=== PATIENT | female | born 1955 | race Caucasian/White ===

== ENCOUNTER → 2020-02-05 | Outpatient (CLI) | payer OTHER, MEDICAID ==
[~2020-02-05] MED LIST: ABILIFY 5 MG TAB5 M1 PO; ABILIFY10 MG PO; AMOXICILLIN 50500 MG PO; ATIVAN0.5 MG PO; AUGMENTIN 875-1 EACH PO; DIAZEPAM 10 MG10 M1 PO; DIAZEPAM 5 MG5 M1 PO; ENDOCET 5-3251 EACH PO; ESTRACE1 MG PO; EUTHYROX137 MCG PO; LEVOTHYROXIN0.025 MG PO; LEVOTHYROXINE 0.15MG PO; LIPITOR 20 MG T20 M1 PO; LISINOPRIL10 MG PO; MECLIZINE HCL12.5 MG PO; METFORMIN HCL500 MG PO; MOBIC15 MG PO; NERVE PILL; NORCO 10-325 T1 EACH PO; OMEPRAZOLE40 MG PO; ONDANSETRON HCL4 M2 PO; PEPCID20 MG PO; PERCOCET 5-3251 EACH PO; PERCOCET PO; PHENERGAN 25 MG25 M1 PO; PROPRANOLOL 20M20 M1 PO; PROZAC40 MG PO; TIZANIDINE HCL2 M1 PO; TRANSDERM-SCO1 PATCH TD; VALIUM5 MG PO; XARELTO15 MG PO; ZANTAC 150MG T150 MG PO; [UNRECOGNIZED DRUG - REMARK]; [UNRECOGNIZED DRUG - REMARK]
--- NOTE | 2020-02-21 15:40 | PAINCON ---
[address] [address] PAIN MANAGEMENT CONSULTATION Name: KATARZYNA SANCHEZ Room: [facility]#: [id number] Admission: 02/05/20 Attend Phys: Jigar Torres MD Discharge: Date of : 53 Report #: [id number] THIS REPORT FOR: //name// cc: Ava Hagan MD, Jayne Lora MD ~ THIS REPORT FOR: //name// CC: Ava Torres DATE OF SERVICE: 02/05/2020 CHIEF COMPLAINT: Back pain. HISTORY OF PRESENT ILLNESS: The patient is a 64-year-old female who has history of back problems. She has pain in her back as well as the left shoulder. She has been having problems since 2012. She has had a problem with lumbar radicular pain. She has undergone treatment at the [facility]. Her physician about a year ago. She has had epidural steroid injection in the past and found them helpful. She has had radiofrequency treatment of her back as well. She rates her pain as an 8/10 today. She has been using oxycodone and finds that that can be helpful. Notes that activities such as lifting, bending, sitting, standing can be problematic. She avoids stairs. Notes that rest and using a reclining chair can be helpful as well. ALLERGIES: Z-NILTON, TETRACYCLINE, MORPHINE. CURRENT MEDICATIONS: Abilify 5 mg, 10 mg total, Lipitor 20 mg, Estrace 1 mg, levothyroxine 137 mcg, Zestril 10 mg, omeprazole 40 mg, Zofran 4 mg, propranolol 20 mg. PAST MEDICAL HISTORY: Back problems, thyroid, hypertension, pulmonary embolus. PAST SURGICAL HISTORY: Radiofrequency treatment to decrease back pain ____, 04/17/2014; thyroidectomy, cholecystectomy, hysterectomy, glass removed from the right hand. SOCIAL HISTORY: The patient is not working, has not worked for the last 18 years, occupation is housewife. REVIEW OF SYSTEMS: Weight change, fatigue, headaches, wears glasses, blurred vision, earaches, chronic sinus problems, sore throat, shortness of breath when lying flat, chronic cough, shortness of breath, loss of appetite, frequent diarrhea, frequent urination, awakens at night to urinate, joint pain, joint stiffness, weakness of muscles and joints, muscle pain and cramps, back pain, difficulty walking, frequent and recurring headaches, lightheadedness, [place] [address] PAIN MANAGEMENT CONSULTATION Name: KATARZYNA SANCHEZ Alex Room: [facility]#: [id number] Admission: 02/05/20 Attend Phys: Jigar Torres MD Discharge: Date of : 53 Report #: [id number] and tingling sensation, depression, and nervousness. PAIN CLINIC ASSESSMENT AND PQRS: 1. The patient is not being treated for rheumatoid arthritis. Does have some arthritic changes and complaints in her left shoulder with a rotator cuff tear. 2. Height 5 feet 10 inches, weight 297 pounds. Blood pressure 160/70, heart rate 71, respiratory rate 20, room air saturation 96%, temperature 98.3. 3. Pain intensity 03/24. 4. Fall history: The patient has not fallen in the last 3 months. 5. Blood thinner. The patient is not on a blood thinning medication. 6. Hypertension. The patient is being treated for hypertension. 7. Opioids greater than 6 weeks. The patient is not on an opioid medication on a regular basis. 8. Risk assessment tool, low for opioid use. 9. Functional assessment tool, reviewed. 10. Recreational drug use. The patient denies. 11. Tobacco: The patient denies. 12. Alcohol: The patient denies frequent use of alcoholic beverages. LABORATORY DATA: X-ray of the lumbar spine, 02/2015. Impression: 1. Circumferential bulge at L3-L4 with mildly impresses on the thecal sac. Bilateral facet arthrosis is noted. Mild bilateral neural foraminal narrowing is seen due to disk bulge and facet arthrosis. A high intensity zone is present within the posterior right subarticular annular fibers of the disk, which may represent an annular fissure/tear that may be associated with pain. 2. Circumferential bulge at L4-L5 with mildly which mildly impresses on the thecal sac. Bilateral facet arthrosis is noted with effusion. Mild bilateral neural foraminal narrowing is seen due to disk bulge and facet arthrosis. 3. Circumferential disk bulge at L5-S1, which mildly impresses on the thecal sac. Bilateral facet arthrosis is noted. Mild bilateral neural foraminal narrowing is seen due to the disk bulge and facet arthrosis. No significant interval changes noted compared to the 02/2015 lumbar spine MRI study. PHYSICAL EXAMINATION: GENERAL: The patient is a well-developed, well-nourished white female. Appears her stated age of 64 years. Has pain and discomfort in the left shoulder as well as the low back area. The patient is wearing glasses. HEENT: Normocephalic, atraumatic. Extraocular eye muscles intact. Sclerae nonicteric. Mucous membranes are moist. NECK: Without adenopathy. The patient has some pain and discomfort in the left shoulder. She has some decreased range of motion secondary to rotator cuff tear. HEART: Regular rate. ABDOMEN: Nontender. LUNGS: Clear. EXTREMITIES: Right upper extremity muscle strength judged to be 5-/5 [place] [address] PAIN MANAGEMENT CONSULTATION Name: KATARZYNA SANCHEZ Alex Room: [facility]#: [id number] Admission: 02/05/20 Attend Phys: Jigar Torres MD Discharge: Date of : 53 Report #: [id number] major muscle groups in the upper extremity. The patient without significant scoliosis, kyphosis or lordosis. The patient has some pain and discomfort in the lumbar area with pain in the mid portion of the back and the left and right paraspinous areas. Notes increased pain and discomfort with prolonged standing. Notes some increased discomfort when she walks. MUSCULOSKELETAL: The patient has some decreased range of motion and pain and discomfort in the left shoulder because of the rotator cuff tear. Has difficulty lifting the left arm. The patient has some pain in the low back area. States that she has had some problems in the lumbar L4-L5 area. The patient complains of some pain in the lower lumbar area and pain in the buttocks area bilaterally. IMPRESSION: 1. Chronic low back pain with history of lumbar radiculopathy. 2. Back problems. 3. Thyroid. 4. Hypertension. 5. Pulmonary embolus. RECOMMENDATIONS: We discussed treatment options with the patient. At this juncture, she feels that the medications of oxycodone have been helpful. She has had good relief with its use. She would like to have this medication renewed. She would also like to consider an epidural steroid injection in the near future. A script for oxycodone 5 mg 1 p.o. b.i.d. have been written. The patient will follow up in the near future when she elects to proceed with an epidural steroid injection. She would like to have her treatment performed at [facility]. This is much closer than the [facility]. We would like to thank you for letting us participate in her care. We hope she continues to improve. <ELECTRONICALLY SIGNED> By: Jigar Torres MD 02/21/20 1540 0025 0628N. Bautista Torres MD /[facility]
== END ==
LOC: M.PC 04:36
PROVIDERS: ATTEND Anesthesiology Pain Medicine
DX: M54.5 Low back pain (principal); I10 Essential (primary) hypertension; I26.99 Other pulmonary embolism without acute cor pulmonale; E07.9 Disorder of thyroid, unspecified; Z88.1 Allergy status to other antibiotic agents; Z90.49 Acquired absence of other specified parts of digestive tract; Z88.8 Allergy status to other drugs, medicaments and biological substances

== ENCOUNTER → 2020-02-19 | Outpatient (CLI) | payer OTHER, MEDICAID ==
--- NOTE | 2020-03-05 08:36 | PAINCON ---
[address] [address] PAIN MANAGEMENT CONSULTATION Name: KATARZYNA SANCHEZ Room: [facility].#: [id number] Admission: 02/19/20 Attend Phys: Jigar Torres MD Discharge: Date of : 53 Report #: [id number] THIS REPORT FOR: //name// cc: Boris Banks Chad W. DO ~ THIS REPORT FOR: //name// CC: Boris Torres DATE OF SERVICE: 02/19/2020 CHIEF COMPLAINT: Back pain. HISTORY: The patient is a 64-year-old female who has been referred to the pain clinic. She has pain and discomfort, which has been problematic since about 2012. She has undergone epidural steroid injections in the past. She has had radiofrequency treatment. She returns today indicating that her pain has increased. The [facility] where she was being treated there is no longer operating the pain clinic. She would like to have her services provided at [facility]. The patient states that she has white coat syndrome and has elevated blood pressures when she is at the hospital, but does have elevated pressures at home. ALLERGIES: Z-NILTON, TETRACYCLINE, MORPHINE. PAIN CLINIC ASSESSMENT/PQRS: 1. The patient is not being treated for rheumatoid arthritis. She does have some arthritic changes and complaints of left shoulder pain with rotator cuff tear. 2. Height 5 feet 8 inches, weight 296 pounds, BMI is 45.3. 3. Vital signs: Blood pressure 203/114. Second blood pressure 194/119. Heart rate 80, respiratory rate 18, room air saturation 97%, temperature 98.3. 4. Fall history: The patient has not fallen in the last 3 months. 5. Blood thinner. The patient is not on a blood thinning medication. 6. Hypertension. The patient is being treated for hypertension and has white coat syndrome. 7. Opioid greater than 6 weeks. The patient is not on an opioid regimen. 8. Risk assessment tool, low for opioid use. 9. Functional assessment tool reviewed. 10. Recreational drug use. The patient denies. 11. Tobacco: The patient denies. 12. Alcohol: The patient denies frequent use of alcoholic beverages. PHYSICAL EXAMINATION: [place] [address] PAIN MANAGEMENT CONSULTATION Name: KATARZYNA SANCHEZ Room: [facility]#: [id number] Admission: 02/19/20 Attend Phys: Jigar Torres MD Discharge: Date of : 53 Report #: [id number] GENERAL: The patient is a well-developed, well-nourished white female. Appears her stated age of 64 years. She is somewhat overweight. She is wearing glasses. She has a mask in place. NECK: Without adenopathy. Some discomfort in her left shoulder with decreased range of motion secondary to rotator cuff tear. HEART: Irregular heart rate. ABDOMEN: Nontender. LUNGS: Clear. EXTREMITIES: Upper extremity muscle strength judged to be 5-/5 for the major muscle groups in the upper extremity. The patient without significant scoliosis, kyphosis or lordosis. The patient has some discomfort in the lumbar area and in the mid portion of her back in the left and right paraspinous areas. The patient notes increased pain with prolonged standing. MUSCULOSKELETAL: The patient with decreased range of motion, some difficulty in left shoulder because of the rotator cuff. The patient has problem pain and discomfort in the L4-L5 dermatomal distribution. The patient complains of pain in the buttocks and the L4-L5 areas. IMPRESSION: 1. Low back pain with history of lumbar radiculopathy. 2. Low back problems. 3. Thyroid problems. 4. Hypertension. RECOMMENDATIONS: We discussed treatment options with the patient. Risks and benefits of an epidural steroid injection were discussed. Possible complications of the procedure, which could include but are not limited to infection, worsening pain, no improvement in pain, nerve damage and bleeding were discussed. The patient elects to proceed. PROCEDURE NOTE: The patient was taken to the procedure area. She was then assisted in getting on the examination table. Her back was sterilely prepped with a Betadine solution at the L4-L5 area. A Betadine solution was used to sterilize the L4-L5 area. Fluoroscopy using anterior, posterior as well as lateral viewing were implemented. The L4 area was then anesthetized with 0.25% bupivacaine using a 25-gauge needle. A 17-gauge Tuohy with loss of resistance technique was then used to gain access to the epidural space. There was no CSF, heme or paresthesia. Total of 80 mg Depo-Medrol, 40 mg triamcinolone and 2 mL of 0.25% bupivacaine was injected. The patient tolerated the procedure well. There were 8 seconds use of fluoroscopy time. The patient will follow up in [place] [address] PAIN MANAGEMENT CONSULTATION Name: KATARZYNA SANCHEZ [facility] [id number] Admission: 02/19/20 Attend Phys: Jigar Torres MD Discharge: Date of : 54 Report #: [id number] We would like to thank you for letting us to participate in her care. We hope she continues to improve. <ELECTRONICALLY SIGNED> By: Jigar Torres MD 03/05/20 0836 0825 1459N. Bautista Torres MD /[facility]
== END | disposition home or self-care (01) ==
LOC: M.PC 04:09
PROVIDERS: ATTEND Anesthesiology Pain Medicine
DX: M54.16 Radiculopathy, lumbar region (principal); G89.29 Other chronic pain; I10 Essential (primary) hypertension; E07.9 Disorder of thyroid, unspecified; Z98.890 Other specified postprocedural states; Z79.899 Other long term (current) drug therapy; Z88.8 Allergy status to other drugs, medicaments and biological substances

== ENCOUNTER → 2020-03-18 | Outpatient (CLI) | payer OTHER, MEDICAID ==
--- NOTE | 2020-04-01 08:25 | PAINCON ---
[address] [address] PAIN MANAGEMENT CONSULTATION Name: KATARZYNA SANCHEZ Room: [facility].#: [id number] Admission: 03/18/20 Attend Phys: Jigar Torres MD Discharge: Date of : 54 Report #: [id number] THIS REPORT FOR: //name// cc: Boris Banks Chad W. DO ~ THIS REPORT FOR: //name// CC: Boris Mansfield DATE OF SERVICE: 03/18/2020 CHIEF COMPLAINT: Low back pain. HISTORY: The patient is a 64-year-old female who has been seen in the Pain Clinic. She has returned today indicating that she is still having pain, which is problematic in the low back area. She feels that she is still having pain and complains of an achy pressure sensation with grinding. Activity continues to exacerbate her discomfort. She rates it as a 4/10. Overall, she feels that her pain is about 60% better with her current use of oxycodone. She has returned today for an epidural steroid injection. As you may recall, she was being treated at [facility]. Services are no longer available in the Pain Clinic at that facility. She is being seen at [facility] for a followup. The patient does suffer from white coat syndrome. States her blood pressure oftentimes becomes quite elevated when she goes to the hospital. ALLERGIES: Z-NILTON, TETRACYCLINE, MORPHINE. PAIN CLINIC ASSESSMENT/PQRS: 1. The patient is not being treated for rheumatoid arthritis. She does have some arthritic changes in her shoulder and complains of rotator cuff pain with a tear. 2. Height 5 feet 8 inches, weight 292 pounds, BMI is 44. 3. Vital signs: Blood pressure 182/96, heart rate 83, respiratory rate 18, room air saturation 95%, and temperature 96.9. 4. Pain intensity, 4/10. 5. Fall history: The patient has not fallen since we saw her last. 6. Blood thinner. The patient is not on a blood thinning medication. 7. Hypertension. The patient is being treated for hypertension. She has a white coat syndrome. 8. Opioids greater than 6 weeks. The patient is not on an opioid regimen. 9. Risk assessment tool, low for opioid use. 10. Functional assessment tool 11. Recreational drug use. The patient denies. 12. Tobacco: [place] [address] PAIN MANAGEMENT CONSULTATION Name: LAURAKATARZYNA Room: [facility]#: [id number] Admission: 03/18/20 Attend Phys: Jigar Torres MD Discharge: Date of : 53 Report #: [id number] 13. Alcohol. The patient denies frequent use of alcoholic beverages. PHYSICAL EXAMINATION: GENERAL: The patient is a well-developed, well-nourished white female. Appears her stated age. She is alert and oriented x 3. She is somewhat obese. She is wearing glasses. She does have a mask in place. NECK: Without adenopathy or JVD. The patient does complain of some pain in her left shoulder with range of motion. This is secondary to rotator cuff tear. HEART: Irregular, heart rate. ABDOMEN: Nontender. LUNGS: Generally clear. EXTREMITIES: Upper extremity muscle strength is 5-/5 for the major muscle groups in the upper extremity. The patient is without significant scoliosis, kyphosis or lordosis. The patient has pain and discomfort in the lumbar area with pain that is radiating down into the L4-L5 dermatomal distribution. The patient has sensory changes. Has pain in the area of the buttocks near the L4-L5 area. IMPRESSION: 1. Lumbar pain with history of lumbar radiculopathy, L4-L5 dermatomal distribution. 2. Lower back pain. 3. Thyroid pain or thyroid problems. 4. Hypertension-white coat syndrome. RECOMMENDATIONS: We discussed treatment options with the patient. Risks and benefits of an epidural steroid injection were discussed. Possible complications of the procedure, which could include but are not limited to infection, worsening pain, no improvement in pain, nerve damage, spinal headache were discussed. We also discussed the problems with steroid use. Steroids can decrease the immune reaction. If the patient should become infected with COVID-19, she may have a more difficult time with virus. She elects to proceed. PROCEDURE NOTE: The patient was taken to the procedure area. She was then assisted in getting on the examination table. Her back was sterilely prepped with a Betadine solution. A 0.25% bupivacaine was infiltrated at the right L4-L5 interspace. This area had been sterilely prepped with Betadine. A 17-gauge Tuohy with loss of resistance technique was then used to gain access to the epidural space. There was no CSF, heme or paresthesia. Total of 80 mg Depo-Medrol, 40 mg triamcinolone and 2 mL of 0.25% bupivacaine was injected. The patient tolerated the procedure well. There were no complications. She remained in the Pain Clinic for an appropriate amount of time. She will follow up in the [place] [address] PAIN MANAGEMENT CONSULTATION Name: KATARZYNA SANCHEZ Alex Room: [facility]#: [id number] Admission: 03/18/20 Attend Phys: Jigar Torres MD Discharge: Date of : 54 Report #: [id number] We would like to thank you for letting us participate in her care. We hope she continues to improve. <ELECTRONICALLY SIGNED> By: Jigar Torres MD 04/01/20 0825 1411 2154N. Bautista Torres MD /nt
== END | disposition home or self-care (01) ==
LOC: M.PC 02:18
PROVIDERS: ATTEND Anesthesiology Pain Medicine
DX: M54.5 Low back pain (principal); M54.16 Radiculopathy, lumbar region; I10 Essential (primary) hypertension; Z88.8 Allergy status to other drugs, medicaments and biological substances; Z79.899 Other long term (current) drug therapy

== ENCOUNTER → 2020-04-15 | Outpatient (CLI) | payer OTHER, MEDICAID ==
[~2020-04-15] MED LIST changes: +[UNRECOGNIZED DRUG - OTHER]
--- NOTE | ~2020-04-15 | PAINCON ---
[address] [address] PAIN MANAGEMENT CONSULTATION Name: KATARZYNA SANCHEZ [id number] Admission: 04/15/20 Attend Phys: Jigar Torres MD Discharge: Date of : 53 Report #: [id number] THIS REPORT FOR: //name// cc: FRANSISCA GENTILE KEVIN ~ THIS REPORT FOR: //name// CC: FRANSISCA Torres DATE OF SERVICE: 04/15/2020 CHIEF COMPLAINT: Low back and leg pain. HISTORY: The patient is a 64-year-old female who has been seen in the past because of lumbar radiculopathy. She returns today indicating that her pain was helped by the last injection. It still is problematic. She is having some difficulty walking. Feels as though there is some pressure in her back. She has a perception that muscles are locking up when she is walking. She has had no complications from previous injections. She has returned today with the hopes of undergoing another injection and for increased pain relief. Pain is about a 4 when she is sitting and rises to the level of 8/10 when she is walking. She has difficulty walking around [employer] because of this discomfort. ALLERGIES: Z-NILTON, TETRACYCLINE, AND MORPHINE. MEDICATIONS: Her medications are lisinopril 10 mg, Abilify 5 mg, omeprazole 40 mg, levothyroxine 137 mcg, Lipitor 20 mg, propranolol 20 mg, diazepam 5 mg b.i.d. for anxiety, Estrace 1 mg. PAIN CLINIC ASSESSMENT/PQRS: 1. The patient is not being treated for rheumatoid arthritis. She does have some arthritic changes in her shoulders and complains of rotator cuff pain and has had a rotator cuff tear. 2. Vital Signs: Blood pressure is 150/102, heart rate 107, respiratory rate 18, room air saturation 95%, temperature 96.3. Height 5 feet 10 inches, weight 282 pounds per the patient's scale. She is unable to stand on the scale. 3. Pain intensity: 4 while sitting, 8 while standing. 4. Fall history: The patient has not fallen since we saw her last. 5. Blood thinner: the patient is not on a blood thinning medication. 6. Hypertension: The patient is being treated for hypertension and has white coat syndrome, states her blood pressures elevate. 7. Opioids greater than 6 weeks: The patient is not receiving opioid medication. 8. Risk assessment tool: Low for opioid use. 9. Functional assessment tool: [place] [address] PAIN MANAGEMENT CONSULTATION Name: KATARZYNA SANCHEZ Room: [facility]#: [id number] Admission: 04/15/20 Attend Phys: Jigar Torres MD Discharge: Date of : 53 Report #: [id number] 10. Recreational drug use: The patient denies. 11. Tobacco: the patient denies. 12. Alcohol: The patient denies frequent use of alcoholic beverages. PHYSICAL EXAMINATION: GENERAL: The patient is a well-developed, well-nourished, white female. Appears her stated age. She is alert and oriented x 3. Her affect is appropriate. She is somewhat obese. HEENT: She is wearing glasses. The patient does have a facial covering in place. NECK: Without adenopathy or JVD. The patient complains of pain in her shoulders with decreased range of motion secondary to rotator cuff tear. HEART: Irregular rate. ABDOMEN: Nontender. LUNGS: Generally clear. EXTREMITIES: Upper extremity muscle strength judged to be 5-/5 for the major muscle groups in the upper extremity. The patient without significant scoliosis, kyphosis or lordosis. The patient does have pain and discomfort in the lumbar area with pain that radiates down into the L4-L5 dermatomal distribution. She has some sensory changes in this dermatomal distribution. IMPRESSION: 1. Lumbar radiculopathy with history of lumbar radicular pain at L4-L5. 2. Low back pain. 3. Thyroid problems. 4. Hypertension. 5. White coat syndrome. RECOMMENDATIONS: We discussed treatment options with the patient. Risks and benefits of an epidural steroid injection were discussed. They include but are not limited to infection, worsening of pain, no improvement in pain, nerve damage, bleeding, and the patient elects to proceed. We also discussed the problems with COVID-19. It is pandemic Should the patient become infected, she may have a more difficult time with the disease given that steroids can decrease one's immunity/immune response. PROCEDURE NOTE: The patient was taken to the procedure area. She was then assisted in getting on the examination table. Her back was sterilely prepped with a Betadine solution at the L4-L5 area. A 0.25% bupivacaine was infiltrated using a 25-gauge needle at the L4-L5 interspace. A 17-gauge Tuohy with loss of resistance technique was used to gain access to the epidural space. There was no CSF, heme or paresthesia. Total of 80 mg Depo-Medrol, 40 mg triamcinolone and 2 mL of 0.25% bupivacaine was injected. The patient tolerated the procedure well. She will follow up in the future as needed. A script for oxycodone 10 mg 1 p.o. b.i.d. has been provided. [address] [address] PAIN MANAGEMENT CONSULTATION Name: KATARZYNA SANCHEZ Room: [facility] Reich#: [id number] Admission: 04/15/20 Attend Phys: Jigar Torres MD Discharge: Date of : 53 Report #: [id number] We would like to thank you for letting us participate in her care. We hope she continues to improve. By: 1135 2237N. Bautista Torres MD /P[facility]
== END | disposition home or self-care (01) ==
LOC: M.PC 09:54
PROVIDERS: ATTEND Anesthesiology Pain Medicine
DX: M54.5 Low back pain (principal); M54.16 Radiculopathy, lumbar region; I10 Essential (primary) hypertension; Z79.899 Other long term (current) drug therapy; Z88.8 Allergy status to other drugs, medicaments and biological substances

== ENCOUNTER → 2020-10-02 | Outpatient (CLI) | payer OTHER, MEDICAID | END | disposition home or self-care (01) | LOC: M.PC 09:56 | PROVIDERS: ATTEND Anesthesiology Pain Medicine | DX: M79.18 Myalgia, other site (principal); M54.16 Radiculopathy, lumbar region; I10 Essential (primary) hypertension; E07.9 Disorder of thyroid, unspecified; Z98.890 Other specified postprocedural states; Z79.899 Other long term (current) drug therapy; Z90.49 Acquired absence of other specified parts of digestive tract; Z90.710 Acquired absence of both cervix and uterus; Z86.711 Personal history of pulmonary embolism; Z79.01 Long term (current) use of anticoagulants; Z88.8 Allergy status to other drugs, medicaments and biological substances ==

== ENCOUNTER → 2020-12-09 | Outpatient (CLI) | payer OTHER, MEDICAID ==
[~2020-12-09] MED LIST changes: +FLEXERIL PO
== END | disposition home or self-care (01) ==
LOC: M.PC 09:19
PROVIDERS: ATTEND Anesthesiology Pain Medicine
DX: M79.18 Myalgia, other site (principal); M54.16 Radiculopathy, lumbar region; I10 Essential (primary) hypertension; E03.9 Hypothyroidism, unspecified; Z98.890 Other specified postprocedural states; Z79.899 Other long term (current) drug therapy; Z90.49 Acquired absence of other specified parts of digestive tract; Z90.710 Acquired absence of both cervix and uterus; Z86.711 Personal history of pulmonary embolism; Z79.01 Long term (current) use of anticoagulants; Z88.8 Allergy status to other drugs, medicaments and biological substances